=== PATIENT | female | born 1985 | race Caucasian/White ===

== ENCOUNTER 2020-01-23 16:13 | Emergency (ER) | payer BC ==
[~2020-01-23] VITALS: Ht 182.9 cm; Wt 105.0 kg
[~2020-01-23 16:13] MED LIST: CYCL-331 PO; HYDR-3165 PO; IBUP400T18 PO; IBUP800T19 PO; PNV1TABL25 PO
--- NOTE | 2020-01-23 16:49 | PHYS DOC ---
Past History Past Medical History: No Pertinent History (LEA PITTMAN DO) Past Surgical History: No Surgical History (LEA PITTMAN DO) Alcohol Use: None Drug Use: None (LEA PITTMAN DO) General Adult EDM: Chief Complaint: VAGINAL BLEEDING HPI: HPI: 34-year-old female G3, P2 8 weeks presents with vaginal bleeding and mild cramping. Patient try to get into her OBs office and they were unable to schedule an ultrasound. Advise she come to the emergency room. Patient started having bleeding today. It has increased this afternoon. She has had some mild cramping. She had no previous difficulty with her other 2 pregnancies. The patient is Rh-. She has been given RhoGam in the past with her normal births. Patient denies fever chills. She is not concerned about STD. (LEA PITTMAN DO) Review of Systems: Review of Systems: Constitutional: Denies fever or chills Eyes: Denies change in visual acuity HENT: Denies nasal congestion or sore throat Respiratory: Denies cough or shortness of breath Cardiovascular: Denies chest pain or edema GI: Denies abdominal pain, nausea, vomiting, bloody stools or diarrhea : Vaginal bleeding, cramping Musculoskeletal: Denies back pain or joint pain Integument: Denies rash Neurologic: Denies headache, focal weakness or sensory changes Endocrine: Denies polyuria or polydipsia Lymphatic: Denies swollen glands Psychiatric: Denies depression or anxiety (LEA PITTMAN DO) Heart Score: Risk Factors: Risk Factors: DM, Current or recent (<one month) smoker, HTN, HLP, family history of CAD, obesity. Risk Scores: Score 0 - 3: 2.5% MACE over next 6 weeks - Discharge Home Score 4 - 6: 20.3% MACE over next 6 weeks - Admit for Clinical Observation Score 7 - 10: 72.7% MACE over next 6 weeks - Early Invasive Strategies (LEA PITTMAN DO) Allergies: Allergies: Allergies Coded Allergies Type Severity Reaction Last Updated Verified No Known Drug Allergies 04/21/14 No (LEA PITTMAN DO) Physical Exam: PE: Constitutional: Well developed, obese, well nourished, no acute distress, non- toxic appearance. [] HENT: Normocephalic, atraumatic, bilateral external ears normal, oropharynx m oist, no oral exudates, nose normal. [] Eyes: PERRLA, EOMI, conjunctiva normal, no discharge. [] Neck: Normal range of motion, no tenderness, supple, no stridor. [] Cardiovascular: Heart rate regular rhythm, no murmur [] Lungs & Thorax: Bilateral breath sounds clear to auscultation [] Abdomen: Bowel sounds normal, soft, no tenderness, no masses, no pulsatile masses. [] Skin: Warm, dry, no erythema, no rash. [] Back: No tenderness, no CVA tenderness. [] Extremities: No tenderness, no cyanosis, no clubbing, ROM intact, no edema. [] Neurologic: Alert and oriented X 3, normal motor function, normal sensory function, no focal deficits noted. [] Psychologic: Affect normal, judgement normal, mood normal. [] (LEA PITTMAN DO) PE: Patient resting comfortably no distress. (BARON LUNDY MD) Current Patient Data: Vital Signs: Vital Signs Date Time Temp Pulse Resp B/P (MAP) Pulse Ox O2 Delivery O2 Flow Rate FiO2 01/23/20 16:28 98.2 90 18 133/92 (106) 100 Room Air (LEA PITTMAN DO) Labs: Laboratory Tests Test 01/23/20 16:35 01/23/20 16:47 Urine Collection Type Unknown Urine Color Yellow Urine Clarity Hazy Urine pH 5.5 Urine Specific [place] >=1.030 Urine Protein Neg Urine Glucose (UA) Neg mg/dL Urine Ketones (Stick) 15 mg/dL Urine Blood Large Urine Nitrite Neg Urine Bilirubin Neg Urine Urobilinogen Dipstick 0.2 mg/dL Urine Leukocyte Esterase Neg Urine RBC >40 /HPF Urine WBC 1-4 /HPF Urine Squamous Epithelial Cells Mod /LPF Urine Bacteria Few /HPF Urine Mucus Mod /LPF White Blood Count 7.5 x10^3/uL Red Blood Count 4.68 x10^6/uL Hemoglobin 14.8 g/dL Hematocrit 44.5 % Mean Corpuscular Volume 95 fL Mean Corpuscular Hemoglobin 32 pg Mean Corpuscular Hemoglobin Concent 33 g/dL Red Cell Distribution Width 14.0 % Platelet Count 201 x10^3/uL Neutrophils (%) (Auto) 70 % Lymphocytes (%) (Auto) 22 % Monocytes (%) (Auto) 7 % Eosinophils (%) (Auto) 1 % Basophils (%) (Auto) 0 % Neutrophils # (Auto) 5.3 x10^3uL Lymphocytes # (Auto) 1.7 x10^3/uL Monocytes # (Auto) 0.5 x10^3/uL Eosinophils # (Auto) 0.1 x10^3/uL Basophils # (Auto) 0.0 x10^3/uL Maternal Serum HCG Beta Subunit 08143 mIU/mL Sodium Level 137 mmol/L Potassium Level 3.6 mmol/L Chloride Level 101 mmol/L Carbon Dioxide Level 26 mmol/L Anion Gap 10 Blood Urea Nitrogen 14 mg/dL Creatinine 0.9 mg/dL Estimated GFR (Cockcroft-Gault) 71.3 BUN/Creatinine Ratio 16 Glucose Level 93 mg/dL Calcium Level 9.6 mg/dL Total Bilirubin 0.3 mg/dL Aspartate Amino Transf (AST/SGOT) 15 U/L Alanine Aminotransferase (ALT/SGPT) 20 U/L Alkaline Phosphatase 87 U/L Total Protein 7.8 g/dL Albumin 4.0 g/dL Albumin/Globulin Ratio 1.1 Vital Signs: Vital Signs Date Time Temp Pulse Resp B/P (MAP) Pulse Ox O2 Delivery O2 Flow Rate FiO2 01/23/20 16:28 98.2 90 18 133/92 (106) 100 Room Air Vital Signs Date Time Temp Pulse Resp B/P (MAP) Pulse Ox O2 Delivery O2 Flow Rate FiO2 01/23/20 19:52 97.8 87 18 128/88 01/23/20 16:28 100 Room Air (BARON LUNDY MD) EKG: EKG: [] (LEA PITTMAN DO) Radiology/Procedures: Radiology/Procedures: [] (ELA PITTMAN DO) Radiology/Procedures: [address] [id number] IMAGING REPORT Signed PATIENT: JEFFREY SOLOMON ACCOUNT: [id number] : 1985 LOCATION: ER AGE: 34 SEX: F EXAM STATUS: REG ER ORD. PHYSICIAN: LEA PITTMAN DO REASON: bleeding in PROCEDURE: PREG 1ST TRIMESTER PREG 1ST TRIMESTER History: Reason: bleeding in / Spl. Instructions: / History: Comparison: None. Technique: Grayscale and color Doppler imaging of the pelvis was performed using transabdominal technique. Findings: The uterus measures 8.6 x 5.6 x 5.1 cm. Single intrauterine regular gestational sac. Yolk sac is identified. pole is identified with crown-rump length 0.49 cm. Estimated gestational age by ultrasound 6 weeks 2 days. heart rate 157 bpm. Small subchorionic hematoma. Maternal ovaries not identified due to overlying structures and positioning. No adnexal masses are seen. No free fluid. IMPRESSION: 1. Single intrauterine with gestational age 6 weeks 2 days and heart rate 157 bpm. 2. Small subchorionic hematoma. Electronically signed by: Leonardo Bardales DO (01/23/2020 6:25 PM) [facility] DICTATED AND SIGNED BY: LEONARDO BARDALES DO DATE: 01/23/201824 CC: LEA PITTMAN DO; BARON LUNDY MD; FARAZ LOU ~ (BARON LUNDY MD) Course & Med Decision Making: Course & Med Decision Making Pertinent Labs and Imaging studies reviewed. (See chart for details) The patient's labs are unremarkable. Her hCG is over 20,000. Her ultrasound is pending. Her urinalysis is negative for infection. I am signing the patient out to Dr. Lundy at 1800. He will determine her final disposition. [] (LEA PITTMAN DO) Course & Med Decision Making I received signout from Dr. Pittman regarding 34-year-old female with vaginal bleeding in early . Patient is Rh- and received RhoGam. Ultrasound reveals IUP. And a subchorionic hemorrhage. Patient clinically stable. (BARON LUNDY MD) Dragon Disclaimer: Dragon Disclaimer: This electronic medical record was generated, in whole or in part, using a voice recognition dictation system. (LEA PITTMAN DO) Departure Departure: Impression: Primary Impression: Bleeding in early Additional Impression: Threatened in early Disposition: HOME/RESIDENCE PRIOR TO ADM Condition: STABLE Referrals: FARAZ LOU (PCP) monday Patient Instructions: Subchorionic Hematoma, Threatened Miscarriage Additional Instructions: EMERGENCY DEPARTMENT GENERAL DISCHARGE INSTRUCTIONS Thank you for coming to THE (ED) today and trusting us with you care. We trust that you had a positivie experience in our Emergency Department. YOUR FOLLOW UP INSTRUCTIONS ARE FOLLOWS: 1. Do you have a private Doctor? If you do not have a private doctir, please ask for a resource list of physicians or clinics that may be able to assist you with follow up care. 2. The Emergency Physicain has interpreted your x-rays. The X-Ray specialist will also review them. If there is a change in the findingd, you will be notified in 48 hours when at all possible. 3. A lab test or culture has been done, your results will be reviewed and you will be notified if you need a change in treatment. ADDITIONAL INSTRUCTIONS AND INFORMATION: 1. Your care today has been supervised by a physician who is specially trained in emergency care. Many problems require more than one evaluation for a complete diagnosis and treatment. We recommend that you schedule your follow up appointment as recommended to ensure complete treatment of you illness or injury. If you are unable to obtain follow up care and continue to have a problem, or if your consition worsens, we recommend that you return to the ED. 2. We are not able to safelymdetermine your condition over the phone nor are we able to give sound medical advice over the phone. For these safety reasons, if you call for medical advice we will ask you to come to the ED for further evaluation. 3. If you have any questions regarding these discharge instructions please call the ED at [phone]. SAFETY INFORMATION: In the interest of safety, wellness, and injury prevention; we encourage you to wear your sealbelt, if you smoke; quite smoking, and we encourage family to use a protective helmet for bicycling and other sporting events that present an increased risk for head injusry. IF YOUR SYMPTOMS WORSEN OR NEW SYMPTOMS DEVELOP, OR YOU HAVE CONCERNS ABOUT YOUR CONDITION; OR IF YOUR CONDITION WORSENS WHILE YOU ARE WAITING FOR YOUR FOLLOW UP APPOINTME NT; EITHER CONTACT YOUR PRIMARY CARE DOCTOR, THE PHYSICIAN WHOSE NAME AND NUMBER YOU WERE GIVEN, OR RETURN TO THE ED IMMEDIATELY. Justification of Admission: Justification of Admission: Justification of Admission Dx: N/A (LEA PITTMAN DO) Justification of Admission Dx: N/A (BARON LUNDY MD) LEA PITTMAN DO Jan 23, 2020 16:49 BARON LUNDY MD Jan 23, 2020 18:35
[2020-01-23 17:07] LABS: BASO % 0 % (0-3); EOS # 0.1 x10^3/uL (0.0-0.7); EOS % 1 % (0-3); HEMATOCRIT 44.5 % (36.0-47.0); HEMOGLOBIN 14.8 g/dL (12.0-15.5); LYMPH # 1.7 x10^3/uL (1.0-4.8); LYMPH % 22 % (24-48); MEAN CORPUSCULAR HEMOGLOBIN 32 pg (25-35); MEAN CORPUSCULAR HGB CONC 33 g/dL (31-37); MEAN CORPUSCULAR VOLUME 95 fL (79-100); MONO # 0.5 x10^3/uL (0.0-1.1); MONO % 7 % (0-9); NEUT # 5.3 x10^3uL (1.8-7.7); NEUT % 70 % (31-73); PLATELET COUNT 201 x10^3/uL (140-400); RED BLOOD COUNT 4.68 x10^6/uL (3.50-5.40); WHITE BLOOD COUNT 7.5 x10^3/uL (4.0-11.0)
[2020-01-23 17:21] LABS: CALCIUM 9.6 mg/dL (8.5-10.1); CREATININE 0.9 mg/dL (0.6-1.0); GFR 71.3; POTASSIUM 3.6 mmol/L (3.5-5.1)
[2020-01-23 17:27] LABS: BILIRUBIN,URINE NEG (NEG); CLARITY,URINE HAZY; COLOR,URINE YELLOW; GLUCOSE,URINE NEG (NEG)
[2020-01-23 17:27] LABS: ALBUMIN/GLOBULIN RATIO 1.1 (1.0-1.7); TOTAL BILIRUBIN 0.3 mg/dL (0.2-1.0); TOTAL PROTEIN 7.8 g/dL (6.4-8.2)
[2020-01-23 17:28] LABS: BACTERIA,URINE FEW /HPF (0-FEW); NITRITE,URINE NEG (NEG); RBC,URINE >40 /HPF (0-2); SQUAMOUS EPITHELIAL CELL,UR MOD /LPF; UROBILINOGEN,URINE 0.2 mg/dL (0.2 mg/dL)
--- NOTE | 2020-01-23 18:27 | RAD ---
PREG 1ST TRIMESTER History: Reason: bleeding in / Spl. Instructions: / History: Comparison: None. Technique: Grayscale and color Doppler imaging of the pelvis was performed using transabdominal technique. Findings: The uterus measures 8.6 x 5.6 x 5.1 cm. Single intrauterine regular gestational sac. Yolk sac is identified. pole is identified with crown-rump length 0.49 cm. Estimated gestational age by ultrasound 6 weeks 2 days. heart rate 157 bpm. Small subchorionic hematoma. Maternal ovaries not identified due to overlying structures and positioning. No adnexal masses are seen. No free fluid. IMPRESSION: 1. Single intrauterine with gestational age 6 weeks 2 days and heart rate 157 bpm. 2. Small subchorionic hematoma. Electronically signed by: Leonardo Bardales DO (01/23/2020 6:25 PM) [facility]
[2020-01-23 19:52] VITALS: BP 128/88
== END 2020-01-23 19:55 | disposition home or self-care (01) ==
LOC: ER 16:13
DX: O20.0 Threatened abortion (principal); Z3A.08 8 weeks gestation of pregnancy
CPT/HCPCS: 36415; 36430; 76801; 80053; 81001; 84702; 85025; 86850; 86900; 86901; 99285; J2791